=== PATIENT | male | born 1970 | race Caucasian/White ===

== ENCOUNTER 2016-12-05 14:53 | Inpatient (IN) | payer SELFPAY ==
[~2016-12-05] VITALS: Ht 165.1 cm; Wt 66.7 kg
[2016-12-05 17:51] LABS: BASOPHILS 0.1 % (0-2); EOSINOPHILS 0.3 % (0-7); HEMATOCRIT 43.8 % (42.0-54.0); HEMOGLOBIN 15.2 g/dL (13.5-17.5); IMMATURE GRANULOCYTES 0.3 % (0-5); LYMPHOCYTES 6.1 % (15-50); MCH 32.6 pg (26.0-34.0); MCHC 34.7 g/dL (31.0-37.0); MEAN PLATELET VOLUME 10.7 fL (7.4-10.4); MONOCYTES 5.4 % (2-11); NEUTROPHILS 87.8 % (40-80); PLATELET COUNT 220 10x3/uL (130-400); RBC 4.66 10x6/uL (4.20-6.10); WBC 11.9 10x3/uL (4.8-10.8)
--- NOTE | 2016-12-05 18:20 | NUR ---
RECEIVED TO FLOOR FROM ER VIA STRETCHER. AWAKE AND ALERT. BED ALARM ON AND CALL LIGHT IN REACH.
[2016-12-05 20:00] VITALS: BP 141/70
[2016-12-06] VITALS (7 sets, daily range): BP systolic 122–152; BP diastolic 70–85; Ht 165.1 cm; Wt 66.7 kg
--- NOTE | 2016-12-06 01:40 | NUR ---
PATIENT LAYING IN BED WITH RIGHT ANKLE PILLOW SPINTED AND ELEVATED. CONSENTS WERE SIGNED AND HANDOUTS GIVEN IN [place]. PATIENT HAS HAD MINIMAL REQUEST. BED IN LOWEST LOCKED POSITION, HEAD AND FEET ELEVATED, CALL LIGHT WITHIN RECH, x3 BED RAILS UP.
--- NOTE | 2016-12-06 02:26 | NUR ---
RN NOTE: ADMISSION ASSESSMENT COMPLETE. PT LYING IN SUPINE POSITION WITH RIGHT FOOT IN PILLOW SPLINT. STATES CREEL CLEANER CONTROLLING PAIN WELL AT THIS TIME. IV IN LEFT WRIST PATENT WITH 1/2 NS INFUSING AT 50 ML / HR. WILL CONTINUE TO MONITOR FOR NEEDS. CALL LIGHT WITHIN REACH.
--- NOTE | 2016-12-06 07:50 | NUR ---
ASSESSMENT COMPLETE. IV TO L WRIST PATENT. 1/2 NS INFUSING AT 50 CC/HR VIA PUMP. SUPERVISOR LAUNDRY DILAUDID 0.2-10-4 IN USE FOR PAIN CONTROL. SPLINT IN USE TO R ANKLE. NPO FOR SURGERY.
--- NOTE | 2016-12-06 12:30 | NUR ---
DR GR BY TO SEE PATIENT. PATIENT NOTIFIED THAT SURGERY WILL BE POSTPONED UNTIL PROBABLY THURSDAY.
--- NOTE | 2016-12-06 19:39 | NUR ---
GAME BIRD FARMER JASON CALLED TO PULL ATIVAN PO FOR PATIENT.
--- NOTE | 2016-12-06 19:52 | NUR ---
PATIENT INFORMED THAT THE MEDICAL ART THERAPIST WAS INFROMED ABOUT HIS ATIVAN AND SOON IT WAS PULLED HE WOULD RECIEVE IT.
[2016-12-07] VITALS: BP 129/70
[2016-12-07 04:00] VITALS: BP 116/74
--- NOTE | 2016-12-07 05:42 | NUR ---
RN NOTE: PT RESTING QUIETLY IN SUPINE POSITION WITH EYES CLOSED AND UNLABORED BREATHING. IV IN LEFT WRIST PATENT WITH 1/2 NS INFUSING AT 50 ML / HR. DILAUDID PARTNERSHIP MARKETING MANAGER IN USE FOR PAIN CONTROL. WILL CONTINUE TO MONITOR FOR NEEDS. SIDE RAILS UP X2 FOR SAFETY.
[2016-12-07 08:35] VITALS: BP 118/63
--- NOTE | 2016-12-07 10:20 | NUR ---
PT AOX4 RESP EVEN AND NONLABORED PT DENIES NEEDS AT THIS TIME IV TO LEFT WRIST PATENT AND INTACT SRX2 BED AT LOWEST SETTING CALL LIGHT WITHIN REACH WILL CONTINUE TO MONITOR
[2016-12-07 12:51] VITALS: BP 120/70
[2016-12-07 16:06] VITALS: BP 134/75
[2016-12-07 20:00] VITALS: BP 116/75
--- NOTE | 2016-12-07 20:06 | NUR ---
PATIENT SIGNING PROCEDURE CONCENT(PRINTED IN [facility]) AND ANESTESIA CONSENT.
[2016-12-08] VITALS (10 sets, daily range): BP systolic 119–154; BP diastolic 67–85
--- NOTE | 2016-12-08 03:22 | NUR ---
RN NOTE: PT RESTING IN SUPINE POSITION WITH EYES CLOSED AND EASY RESPIRATIONS. IV IN LEFT WRIST PATENT WITH 1/2 NS INFUSING AT 50 ML / HR. ENGINEER FIRST ASSISTANT / DILAUDID IN USE FOR PAIN CONTROL. WILL CONTINUE TO MONITOR FOR NEEDS. CALL LIGHT WITHIN REACH.
--- NOTE | 2016-12-08 07:25 | NUR ---
PATIENT RECEIVED ALERT IN [place] POSITION. NO SIGNS OF DISTRESS NOTED. SIDE RAILS UP X2. BED IN LOW POSITION. CALL LIGHT IN REACH. DENIES NEEDS. MI[employer]OS[employer]FT DEVELOPER BUTTON IN HAND
--- NOTE | 2016-12-08 10:00 | NUR ---
ALERT IN [place] POSITION. NO SIGNS OF DISTRESS NOTED. DENIES NEEDS. BED IN LOW POSITION. CALL LIGHT IN REACH. SIDE RAILS UP X2. REGIONAL SALES LEADER BUTTON IN REACH.
--- NOTE | 2016-12-08 11:45 | NUR ---
PATIENT OFF FLOOR TO SURGERY VIA BED.
--- NOTE | 2016-12-08 15:30 | NUR ---
PATIENT BACK TO ROOM FROM PACU VIA BED. NO SIGNS OF DISTRESS NOTED. VITAL SIGNS STABLE. DENIES NEEDS. SIDE RAILS UP X2. BED IN LOW POSITION. CALL LIGHT IN REACH.
--- NOTE | 2016-12-08 15:40 | NUR ---
SCD TO LEFT LEG. RIGHT LEG ELEVATED ON PILLOWS X2.
--- NOTE | 2016-12-08 17:10 | NUR ---
ALERT IN BED EATING DINNER. TOLERATING WELL. VITAL SIGNS STABLE. SIDE RAILS UP X2. BED IN LOW POSITION. CALL LIGHT AND PSYCHOTHERAPIST BUTTON IN REACH. DENIES NEEDS.
--- NOTE | 2016-12-09 02:24 | NUR ---
REC'D[place] [facility] IN BED EYES CLOSED RESP. DEEP AND EVEN. VISITOR AT BEDSIDE.SPLINT WITH ACWRAP DRSG. INTACT TO RIGHT LEG.MINIMAL SWELLING TO TOES.TOENAILBEDS PINK AND BLANCHES WELL UP ON PILLOW WITH ICE IN PLACE.WILL CONTINUE TO MONITOR
[2016-12-09 04:00] VITALS: BP 115/65
--- NOTE | 2016-12-09 07:45 | NUR ---
PT ASSESSMENT COMPLETE AWAKE AND ALERT ORINETED X 3 LUNGS CLEAR BILATERA HAS O2 AT 1 LPM PER NASAL CANULA NOTED SURGICAL DRESSING NOTED TO RIGHT LEG. NOTED TO HAVE DILAUDID SLIDE MAKER FOR PAIN CONTROL 1/2 NS INFUSING PER ORDER TO L WRIST PIV PATENT WITH NO REDNESS OR TENDERNESS NOTED.
[2016-12-09] MEDS ORDERED: BAYER CHEWABLE81 MG PO (07:54)
[2016-12-09] MEDS ORDERED: DILAUDID4 MG PO (07:54)
[2016-12-09 08:29] VITALS: BP 126/76
--- NOTE | 2016-12-09 10:06 | NUR ---
Patient Name: SHAYNE PACHECO Admission Status: ER Accout number: [id number] Admission Date: 12-05-2016 : 1970 Admission Diagnosis:DISPLACED BIMALLEOLAR FRACTURE OF RIGHT LOWER LEG, INIT Attending: JUANA GR Current LOS: 4 Anticipated DC Date: Planned Disposition: Home Primary Insurance: UNINSURED DISCOUNT PLAN Discharge Planning Comments: CM met with patient to assess discharge planning needs. Patient is living in [place] with a friend, he stated that his and family live in [place]. He does not have any insurance. He will need crutches when he discharges home and [facility] will [facility] or buy some from [facility]. Patient denies any other needs at this time. PCP: DIANA Burrows (Friend) [place] Operator: Jennifer Duenas * Is the patient Alert and Oriented? Yes 0 * How many steps to enter\exit or inside your home? 0 0 * PCP none 0 * Pharmacy [facility] [address] [facility] * Preadmission Environment Home Alone 0 * ADLs Independent 0 * Equipment None 0 * List name and contact numbers for known caregivers / representatives who currently or will assist patient after discharge: José Miguel (friend) 0 * Community resources currently utilized None 0 * Additional services required to return to the preadmission environment? No 0 * Can the patient safely return to the preadmission environment? Yes 0 * Has this patient been hospitalized within the prior 30 days at any hospital? No 0 Grand Total: 0
[2016-12-09 11:30] VITALS: BP 123/72
--- NOTE | 2016-12-09 13:34 | NUR ---
PT GIVEN DISCHARGE INSTRUCTIONS EXPRESSED UNDERSTANDING OF ALL MEDS AND FOLLOW UP APPOINTSMENTS GIVEN HARD SCRIPTS WITH DISCHARGE REMOVED SALINE LOCK FROM LEFT FRORARM WITH TIP INTACT TOLERATED WELL HELD PRESSURE NO BLEEDING NOTED. REQUESTED AND RECIEVED PAIN MED PO BEFORE DISCHARGE PT WOULD ONLY TAKE 2 MG OF PO DILAUDID STATES THAT HE HAS NEVER TAKEN PAIN MEDS BEFORE AND WOULD RATHERT START WITH THE LOWEST DOSE HE CAN.
== END 2016-12-09 13:36 | disposition home or self-care (01) | DRG 494 ==
LOC: D.ER 14:53 → D.MS 17:19
PROVIDERS: ADMIT Orthopaedic Surgery
PROC: 0QSG04Z Reposition Right Tibia with Internal Fixation Device, Open Approach (ICD-10-PCS; principal; 2016-12-08 13:45)
DX: S82.841A Displaced bimalleolar fracture of right lower leg, initial encounter for closed fracture (principal); S82.871A Displaced pilon fracture of right tibia, initial encounter for closed fracture; W11.XXXA Fall on and from ladder, initial encounter